=== PATIENT | male | born 1985 | race Two or more races ===

== ENCOUNTER 2018-03-04 15:22 | Outpatient (CLI) | payer OTHER | END 2018-03-04 17:16 | disposition home or self-care (01) | LOC: LAB 15:22 | DX: J11.1 Influenza due to unidentified influenza virus with other respiratory manifestations (principal); J00 Acute nasopharyngitis [common cold] ==

== ENCOUNTER → 2020-07-01 | Outpatient (CLI) | payer OTHER | END | disposition home or self-care (01) | LOC: PPH VACUNA | DX: Z23 Encounter for immunization (principal) ==

== ENCOUNTER 2020-07-22 08:00 | Outpatient (CLI) | payer OTHER | END 2020-07-22 08:30 | disposition home or self-care (01) | LOC: PPH VACUNA 08:00 | DX: Z23 Encounter for immunization (principal) ==

== ENCOUNTER 2021-03-01 14:05 | Outpatient (CLI) | payer OTHER | END 2021-03-01 14:15 | disposition home or self-care (01) | LOC: PPH VACUNA 14:05 | PROVIDERS: ATTEND Emergency Medicine Pediatric Emergency Medicine | DX: Z23 Encounter for immunization (principal) ==